=== PATIENT | male | born 1995 | race Hispanic/Latino ===

== ENCOUNTER 2020-09-18 12:29 | Emergency (ER) | payer OTHER ==
[2020-09-18] MEDS ORDERED: Lidocaine 1% PF 5 ML VIAL ONE (12:41)
[2020-09-18] MEDS ORDERED: Bacitracin 1 PK ONE (12:42)
== END 2020-09-18 13:30 | disposition home or self-care (01) ==
LOC: ERS 12:29
DX: S51.011A Laceration without foreign body of right elbow, initial encounter (principal); W26.8XXA Contact with other sharp object(s), not elsewhere classified, initial encounter
CPT/HCPCS: 12001